=== PATIENT | female | born 1975 | race Caucasian/White ===

== ENCOUNTER 2024-07-23 01:22 | Emergency (ER) | payer MEDICAID, SELFPAY ==
[2024-07-23 02:02] VITALS: BP 106/65; PULSE 83; RESP 18; TEMP 37.4; O2SAT 96; BMI 31.6
--- NOTE | 2024-07-23 02:18 | EDRME_ITS ---
Rapid Medical Screening Exam [facility] Arrival date/time: 07/23/24 01:22 48F with no significant PMH presents to ED with several days of cough, body aches, fevers/chills, YOUNG, and some non-bloody diarrhea. Patient tested positive for flu B and didn't want to wait for discharge paperwork. Chief Complaint: Abdominal Pain Vital signs: Vital Signs Temperature 99.4 F 07/23/24 02:02 Pulse Rate 83 07/23/24 02:02 Respiratory Rate 18 07/23/24 02:02 Blood Pressure 106/65 07/23/24 02:02 Pulse Oximetry (%) 96 07/23/24 02:02 Oxygen Delivery Method Room Air 07/23/24 02:02
== END 2024-07-23 02:18 | disposition left against medical advice (07) ==
PROVIDERS: Emergency Provider Emergency Medicine
DX: J10.1 Influenza due to other identified influenza virus with other respiratory manifestations (principal); Z53.21 Procedure and treatment not carried out due to patient leaving prior to being seen by health care provider
CPT/HCPCS: 87400; 99281